=== PATIENT | male | born 1980 | race Caucasian/White ===

== ENCOUNTER 2021-02-05 18:16 | Inpatient (IN) | payer MEDICAID, SELFPAY ==
--- NOTE | ~2021-02-05 | CT_ITS ---
EXAMINATION: CT SHOULDER WITH CONTRAST, LEFT CLINICAL INFORMATION: Left shoulder pain. COMPARISON: None TECHNIQUE: Multiple axial images of the left shoulder were obtained without administration of intravenous contrast. Coronal and sagittal reformatted images were obtained. This CT examination was performed using dose optimization techniques as appropriate, variously including the following: *Automated exposure control *Adjustment of mA and/or kV according to patient size (this includes techniques or standardized protocols for targeted exams where dose is matched to indication/reason for exam; i.e. extremities or head) *Use of iterative reconstruction technique DLP: 280 mGy-cm FINDINGS: The glenohumeral and acromioclavicular joints are intact. There is no fracture or dislocation. The adjacent visualized upper left ribs are intact. Partial visualization of cervical thoracic scoliosis. The visualized cervical, mediastinal and left upper extremity soft tissues are unremarkable. There is no lymphadenopathy. CT/CT shoulder LT w con IMPRESSION: Unremarkable CT scan of the left shoulder.
--- NOTE | ~2021-02-05 | US_ITS ---
EXAMINATION: US VENOUS WITH DOPPLER UPPER EXTREMITY, LEFT CLINICAL INFORMATION: Left arm pain, swelling COMPARISON: None TECHNIQUE: Ultrasound of the upper extremity is performed using compression sonography and color and pulse Doppler flow with assessment of augmentation of flow. There is also imaging and Doppler assessment of the jugular and subclavian veins. Spectral analysis with color-flow imaging is performed. FINDINGS: Respiratory variation, normal compression, and augmented flow are noted throughout the upper extremity including the axillary, brachial, cubital, and radial and ulnar veins. There is normal flow in the internal jugular and subclavian veins. There is no visible deep or superficial thrombophlebitis. If the patient's symptoms progress, a followup ultrasound in 5 -7 days might be of value to exclude proximal propagation from a nonvisualized distal arm vein. US/US venous duplex UE LT IMPRESSION: No DVT demonstrated in the left upper extremity.
--- NOTE | ~2021-02-05 | CT_ITS ---
EXAMINATION: CT hand LT w con, CT forearm LT w con CLINICAL INFORMATION: Swelling, question tenosynovitis COMPARISON: X-rays earlier the same day TECHNIQUE: After administration of 85 cc Omnipaque 350 intravenous contrast, contiguous helical axial tomographic images through the left hand and forearm were obtained. FINDINGS: Image quality is suboptimal. There is motion artifact particularly of the forearm and wrist. Motion artifact limits evaluation of the ulna. No gross fracture or dislocation seen. There is limited soft tissue contrast. No gross fluid collection is seen. The liver, spleen, pancreas, bilateral adrenal glands, and left kidney are normal. The stomach and small bowel are nondilated. Small fat-containing umbilical hernia. CT/CT forearm LT w con IMPRESSION: Limited study. Motion artifact. Poor soft tissue contrast. No focal fluid collection. No displaced fracture. Consider MRI for further evaluation as clinically indicated particularly if the [id number] could be limited to one anatomic region, for example the hand, wrist, or forearm.
--- NOTE | ~2021-02-05 | CT_ITS ---
EXAMINATION: CT hand LT w con, CT forearm LT w con CLINICAL INFORMATION: Swelling, question tenosynovitis COMPARISON: X-rays earlier the same day TECHNIQUE: After administration of 85 cc Omnipaque 350 intravenous contrast, contiguous helical axial tomographic images through the left hand and forearm were obtained. FINDINGS: Image quality is suboptimal. There is motion artifact particularly of the forearm and wrist. Motion artifact limits evaluation of the ulna. No gross fracture or dislocation seen. There is limited soft tissue contrast. No gross fluid collection is seen. The liver, spleen, pancreas, bilateral adrenal glands, and left kidney are normal. The stomach and small bowel are nondilated. Small fat-containing umbilical hernia. CT/CT hand LT w con IMPRESSION: Limited study. Motion artifact. Poor soft tissue contrast. No focal fluid collection. No displaced fracture. Consider MRI for further evaluation as clinically indicated particularly if the [id number] could be limited to one anatomic region, for example the hand, wrist, or forearm.
--- NOTE | ~2021-02-05 | XR_ITS ---
EXAMINATION: XR HAND, LEFT CLINICAL INFORMATION: Finger pain in hand swelling. COMPARISON: No pertinent priors available. TECHNIQUE: PA, lateral, and oblique views of the left hand. FINDINGS: There is diffuse soft tissue swelling about the index finger. No radiopaque foreign body is visualized. The bones are normal in appearance. No evidence of fracture or focal osseous lesion. Alignment is anatomic. Joint spaces are maintained. No soft tissue calcifications. XR/XR hand LT 2V IMPRESSION: Diffuse soft tissue swelling about the index finger. No evidence of radiopaque foreign body. No underlying bony abnormality is demonstrated. The remainder of the hand is unremarkable.
[2021-02-05 18:21] VITALS: BP 144/82; PULSE 95; RESP 18; TEMP 36.8; O2SAT 99; BMI 25.8
--- NOTE | 2021-02-05 20:10 | ED.GENADULT ---
HPI - General Adult General Chief complaint: General Medical Stated complaint: ?Finger infection Time Seen by Provider: 02/05/21 21:30 Source: patient Mode of arrival: ambulatory Limitations: no limitations History of Present Illness HPI narrative: 40-year-old male presents with left index finger pain and swelling. States that he was treated with an antibiotic from an urgent care clinic and was advised to follow up within emergency department if pain or swelling increased. He states that he has 10/10 pain and now that the finger pain is radiating up to his arm into his shoulder. 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 He states to feel tired, but denies chest pain or pressure, palpitations, shortness of breath, abdominal pain, abdominal distention, dysuria, hematuria, nausea, vomiting, diarrhea, constipation, and weakness. Onset (ago): day(s) Location: upper extremity Severity: moderate Severity scale (1-10): 8 Quality: aching Pain Consistency: constant Relieving factors: none Exacerbating factors: movement Associated symptoms: denies other symptoms Treatments prior to arrival: other (Antibiotics) Related Data Home Medications Medication Instructions Recorded Confirmed naproxen 500 mg tablet 1 tab PO BID 02/05/21 02/05/21 sulfamethoxazole 800 1 tab PO Q12H 02/05/21 02/05/21 mg-trimethoprim 160 mg tablet Allergies Allergy/AdvReac Type Severity Reaction Status Date / Time No Known Allergies Allergy Verified 02/05/21 18:21 [No Known Allergies*] Review of Systems Review of Systems: Constitutional: No Fever, No Chills ENT/Mouth: No Ear Pain, No Hoarseness, No sore throat Eyes: No Eye Pain, No Swelling, No Redness, No Foreign Body Cardiovascular: No Chest Pain, No SOB Respiratory: No Cough, No Dyspnea Gastrointestinal: No Nausea, No Vomiting, No Diarrhea, No abdominal Pain Genitourinary: No Dysuria, No Hematuria Musculoskeletal: positive left index finger, hand and shoulder pain, No Myalgias, No Joint Swelling Skin: No Skin lacerations, No rash Neuro: No Weakness, No Numbness, No Paresthesias, No Loss of Consciousness, No Dizziness, No Headache Psych: No Anxiety/Panic, No Depression Heme/Lymph: no easy bruising, no Lymphadenopathy Endocrine: No Polyuria, No Polydipsia Yes all other systems are reviewed and are negative [facility]LY [facility] Past Medical History Attestation statement: The following information was validated with the patient. Source: old records reviewed Medical History (Updated 02/05/21 @ 21:30 by Marli Anne NP) No active medical problems Social History Social History Alcohol intake: current Alcohol intake frequency: a few times a month Use of substances other than those prescribed or required for medical reasons: Yes Substance Use Type: Crack/Cocaine, Heroin and Marijuana Advance Directives: No Advance Directives Information Provided: No Physical Exam Vital Signs: Vital Signs: Last Vital Signs Temp 99.8 F 02/06/21 00:41 Pulse 70 02/06/21 00:41 Resp 20 02/06/21 00:41 BP 130/84 02/06/21 00:41 Pulse Ox 99 02/06/21 00:41 Body Mass Index 25.8 Appearance: Alert. Oriented X3. No acute distress. Eyes: Pupils equal, round and reactive to light. ENT: Pharynx normal. Neck: Normal inspection. Neck supple. CVS: Normal heart rate and rhythm. Pulses normal. Respiratory: No respiratory distress. Breath sounds normal. Abdomen: Soft and nontender. Skin: Skin warm and dry. Normal skin color. Normal skin turgor. Extremities: Decreased range of motion to left shoulder, hand and elbow, swelling noted to the left index finger. Neuro: No motor deficit. No sensory deficit. Cranial nerves 2-12 intact. Course Course Course Narrative: 40-year-old male presents with increasing pain to left index finger which radiates up to his arm and shoulder. Has been taking Augmentin over the past week with poor effect. Will order x-rays, CBC, Chem 7 lactic and cultures. 9:26 p.m. lactic acid is 2.1, white count is 15.8 with presenting heart rate of 95. Patient does meet SIRS criteria at this time will resuscitate with 1 L of fluid, give ceftriaxone and vancomycin. Discussion with hospitalist, plan is to admit, would like to rule out tenosynovitis with CT scan of hand, forearm and shoulder. CT scans are negative for acute findings. Radiologist noted significant movement to the hand and forearm, request MRI. Consultations Consultation #1: Mazraeh Time: 22:00 Medical Decision Making Differential Diagnosis Differential Diagnosis: Cellulitis, osteomyelitis, foreign body, sepsis Medical Records Medical records reviewed: Yes I reviewed the patient's medical records. Lab Data Lab results reviewed: Yes I reviewed the patient's lab results. Result diagrams: 02/05/21 20:41 02/05/21 20:41 Labs: Lab Results 02/05/21 02/05/21 02/05/21 Range/Units 20:41 20:41 20:41 WBC 15.8 H (4.8-10.8) X10*3/uL RBC 4.08 L (4.60-5.80) X10*6/uL Hgb 11.6 L (14.0-18.0) g/dl Hct 36.4 L (42-52) % MCV 89.2 (80-98) fL MCH 28.4 (27.0-33.0) pg MCHC 31.9 (31.0-36.0) g/dl RDW 13.4 (11.0-16.0) % Plt Count 299 (160-400) X10*3/uL MPV 9.5 (9.4-12.4) fL Immature Gran % (Auto) 0.4 (0.0-0.4) % Neut % (Auto) 76.9 H (45-73) % Lymph % (Auto) 13.0 L (20-40) % [place] % (Auto) 8.9 (2-11) % Eos % (Auto) 0.7 (0-4) % Baso % (Auto) 0.1 (0-2) % Lymph # (Auto) 2.1 (1.2-4.9) X10*3/uL [place] # (Auto) 1.4 H (0.1-1.2) X10*3/uL Eos # (Auto) 0.1 (0.0-0.4) X10*3/uL Baso # (Auto) 0.0 (0.0-0.2) X10*3/uL Abs Immat Gran (auto) 0.07 H (0.00-0.03) X10*3/uL Absolute Neuts (auto) 12.1 H (2.0-8.3) X10*3/uL Absolute Nucleated RBC 0.000 (0.0-0.012) X10*3/uL Nucleated RBC % (auto) 0.0 (0.0-0.2) /100WBC ESR (0-15) MM/HR Sodium 136 (135-145) mmol/L Potassium 4.4 (3.3-5.1) mmol/L Chloride 99 (96-108) mmol/L Carbon Dioxide 26 (22-29) mmol/L Anion Gap 15 (12-20) BUN 14 (9-16) mg/dL Creatinine 0.80 (0.5-1.4) mg/dL Estim Creat Clear Calc 112.9 Estimated GFR > 60 Random Glucose 107 (60-115) mg/dL Lactic Acid 2.1 H* (0.5-2.0) mmol/L Lactic Acid Fup @ 2Hr (0.5-2.0) mmol/L Calcium 9.6 (8.4-10.2) mg/dL C-Reactive Protein 10.02 H (< or = 0.50) mg/dL COVID-19 ([facility]) (Negative) COVID-19 Clin Com 02/05/21 02/05/21 02/05/21 Range/Units 20:41 21:09 23:23 WBC (4.8-10.8) X10*3/uL RBC (4.60-5.80) X10*6/uL Hgb (14.0-18.0) g/dl Hct (42-52) % MCV (80-98) fL MCH (27.0-33.0) pg MCHC (31.0-36.0) g/dl RDW (11.0-16.0) % Plt Count (160-400) X10*3/uL MPV (9.4-12.4) fL Immature Gran % (Auto) (0.0-0.4) % Neut % (Auto) (45-73) % Lymph % (Auto) (20-40) % [place] % (Auto) (2-11) % Eos % (Auto) (0-4) % Baso % (Auto) (0-2) % Lymph # (Auto) (1.2-4.9) X10*3/uL [place] # (Auto) (0.1-1.2) X10*3/uL Eos # (Auto) (0.0-0.4) X10*3/uL Baso # (Auto) (0.0-0.2) X10*3/uL Abs Immat Gran (auto) (0.00-0.03) X10*3/uL Absolute Neuts (auto) (2.0-8.3) X10*3/uL Absolute Nucleated RBC (0.0-0.012) X10*3/uL Nucleated RBC % (auto) (0.0-0.2) /100WBC ESR 48 H (0-15) MM/HR Sodium (135-145) mmol/L Potassium (3.3-5.1) mmol/L Chloride (96-108) mmol/L Carbon Dioxide (22-29) mmol/L Anion Gap (12-20) BUN (9-16) mg/dL Creatinine (0.5-1.4) mg/dL Estim Creat Clear Calc Estimated GFR Random Glucose (60-115) mg/dL Lactic Acid (0.5-2.0) mmol/L Lactic Acid Fup @ 2Hr 0.7 (0.5-2.0) mmol/L Calcium (8.4-10.2) mg/dL C-Reactive Protein (< or = 0.50) mg/dL COVID-19 ([facility]) Negative (Negative) COVID-19 Clin Com See Note Imaging Data Hand x-ray: Attestation: I personally reviewed and interpreted this imaging study as follows: Radiologist's impression: EXAMINATION: XR HAND, LEFT CLINICAL INFORMATION: Finger pain in hand swelling.? COMPARISON: No pertinent priors available.? TECHNIQUE: PA, lateral, and oblique views of the left hand. FINDINGS: There is diffuse soft tissue swelling about the index finger. No radiopaque foreign body is visualized. The bones are normal in appearance. No evidence of fracture or focal osseous lesion. Alignment is anatomic. Joint spaces are maintained. No soft tissue calcifications.? XR/XR hand LT 2V IMPRESSION: Diffuse soft tissue swelling about the index finger. No evidence of radiopaque foreign body. No underlying bony abnormality is demonstrated. The remainder of the hand is unremarkable. CT scan hand, forearm and shoulder: Attestation: I personally reviewed and interpreted this imaging study as follows: Radiologist's impression: CLINICAL INFORMATION: Swelling, question tenosynovitis COMPARISON: X-rays earlier the same day TECHNIQUE: After administration of 85 cc Omnipaque 350 intravenous contrast, contiguous helical axial tomographic images through the left hand and forearm were obtained. FINDINGS: Image quality is suboptimal. There is motion artifact particularly of the forearm and wrist. Motion artifact limits evaluation of the ulna. No gross fracture or dislocation seen. There is limited soft tissue contrast. No gross fluid collection is seen. The liver, spleen, pancreas, bilateral adrenal glands, and left kidney are normal. The stomach and small bowel are nondilated. Small fat-containing umbilical hernia. CT/CT hand LT w con IMPRESSION: Limited study. Motion artifact. Poor soft tissue contrast. ? No focal fluid collection. No displaced fracture. ? Consider MRI for further evaluation as clinically indicated particularly if the [id number] could be limited to one anatomic region, for example the hand, wrist, or forearm. FINDINGS: The glenohumeral and acromioclavicular joints are intact. There is no fracture or dislocation. The adjacent visualized upper left ribs are intact. Partial visualization of cervical thoracic scoliosis. The visualized cervical, mediastinal and left upper extremity soft tissues are unremarkable. There is no lymphadenopathy. CT/CT shoulder LT w con IMPRESSION: Unremarkable CT scan of the left shoulder.?? Critical Care Time Critical Care Time Critical Care Time: Yes Total Critical Care Time: 65 Attestation: I have personally provided critical care time exclusive of time spent on separately billable procedures. Time includes review of laboratory data, radiology results, discussion with consultants, and monitoring for potential decompensation. Interventions were performed as documented. Discharge Plan Discharge Clinical Impression: Cellulitis Qualifiers: Site of cellulitis: extremity Site of cellulitis of extremity: finger Laterality: left Qualified Code(s): L03.012 - Cellulitis of left finger Patient Disposition: Admitted As Inpatient
[2021-02-05] MEDS: Ketorolac Tromethamine 15 MG/ML VIAL 30 MG IVPUSH (20:42)
[2021-02-05 20:46] LABS: MANUAL DIFF FLAG NO
[2021-02-05 20:47] LABS: Basophils Percent Auto 0.1 % (0-2); Eosinophils Absolute Auto 0.1 X10*3/uL (0.0-0.4); Eosinophils Percent Auto 0.7 % (0-4); Hematocrit 36.4 % (42-52); Hemoglobin 11.6 g/dl (14.0-18.0); Imm Gran Abs Auto 0.07 X10*3/uL (0.00-0.03); Imm Gran Pct Auto 0.4 % (0.0-0.4); Lymphocytes Absolute Auto 2.1 X10*3/uL (1.2-4.9); Mean Corpuscular HGB Conc 31.9 g/dl (31.0-36.0); Mean Corpuscular Hemoglobin 28.4 pg (27.0-33.0); Mean Corpuscular Volume 89.2 fL (80-98); Mean Platelet Volume 9.5 fL (9.4-12.4); Monocytes Absolute Auto 1.4 X10*3/uL (0.1-1.2); Monocytes Percent Auto 8.9 % (2-11); Neutrophils Absolute Auto 12.1 X10*3/uL (2.0-8.3); Neutrophils Percent Auto 76.9 % (45-73); Platelet Count 299 X10*3/uL (160-400); Red Blood Count 4.08 X10*6/uL (4.60-5.80); Red Cell Distribution Width 13.4 % (11.0-16.0); White Blood Count 15.8 X10*3/uL (4.8-10.8)
[2021-02-05 21:05] VITALS: BP 130/87; PULSE 78; RESP 19; TEMP 37.8; O2SAT 97
[2021-02-05 21:18] LABS: Anion Gap 15 (12-20); Blood Urea Nitrogen 14 mg/dL (9-16); Calcium 9.6 mg/dL (8.4-10.2); Carbon Dioxide 26 mmol/L (22-29); Chloride 99 mmol/L (96-108); Creatinine Clr Calc Pharmacy 112.9; Estimated Glomerular Filt Rate > 60; Glucose Random 107 mg/dL (60-115); Potassium 4.4 mmol/L (3.3-5.1); Sodium 136 mmol/L (135-145)
[2021-02-05 21:21] LABS: Lactic Acid 2.1 mmol/L (0.5-2.0)
[2021-02-05] MEDS: cefTRIAXone sodium 1 GM in 0.9 % Sodium Chloride 50 ML IV (21:28)
[2021-02-05] MEDS: 0.9 % Sodium Chloride 1,000 ML 999 ML IVCONT ×2 (21:28→22:35)
[2021-02-05 21:46] LABS: COVID-19 Test Negative (Negative)
[2021-02-05 22:20] VITALS: BP 156/88; PULSE 76; RESP 19; TEMP 37.7; O2SAT 99
[2021-02-05] MEDS: vancomycin HCL 1,000 MG in 0.9 % Sodium Chloride 250 ML 270 MG IV (22:35)
[2021-02-05 22:45] LABS: Reflex Lactate? Lactic Acid Added
[2021-02-05] MEDS: iohexoL 350 MG/ML 100 ML INFUS..BTL IV (22:51)
[2021-02-05 23:42] LABS: ~Lactic Acid-LAB USE ONLY 0.7 mmol/L (0.5-2.0)
[2021-02-05] MEDS: iohexoL 350 MG/ML 100 ML INFUS..BTL 85 ML IV (23:42)
[2021-02-06] VITALS (14 sets, daily range): BP systolic 114–162; BP diastolic 59–90; PULSE 59–90; RESP 12–20; TEMP 36.1–37.8; O2SAT 97–100
--- NOTE | 2021-02-06 | ECG_ITS ---
Test Reason : QTC CHECK Blood Pressure : / mmHG Vent. Rate : 061 BPM Atrial Rate : 061 BPM P-R Int : 128 ms QRS Dur : 098 ms QT Int : 436 ms P-R-T Axes : 045 014 024 degrees QTc Int : 438 ms Normal sinus rhythm Normal ECG No previous ECGs available Referred By: Kendrick Torres Electronically Signed By:PAOLA LOAIZA
--- NOTE | 2021-02-06 00:05 | PC.NURSE ---
00:00 VS entered in error, wrong patient
--- NOTE | 2021-02-06 00:21 | PC.NURSE ---
Marli FIELD SCOUT aware of temp. Per Marli, pt receive tylenol v/o
[2021-02-06] MEDS: Acetaminophen 325 MG TABLET PO (00:27)
[2021-02-06] MEDS: Acetaminophen 325 MG TABLET 650 MG PO ×2 (00:28→08:22)
[2021-02-06 01:06] LABS: C Reactive Protein 10.02 mg/dL (< or = 0.50)
[2021-02-06 01:20] LABS: Erythrocyte Sedimentation Rate 48 MM/HR (0-15)
[2021-02-06] MEDS: Enoxaparin Sodium 40 MG/0.4 ML SYRINGE SUBCUT (02:41)
[2021-02-06] MEDS: Piperacillin Sodium/Tazobactam 3.375 GM in 0.9 % Sodium Chloride 50 ML IV ×4 (02:41→21:37)
[2021-02-06] MEDS: HYDROmorphone HCl 0.5 MG/0.5 ML SYRINGE IVPUSH ×4 (02:56→21:33)
--- NOTE | 2021-02-06 06:48 | PM.IMHP ---
History of Present Illness Date of Service: 02/05/21 Chief Complaint: Left shoulder arm and hand pain 40-year-old with past medical history of IV drug use presents to the hospital with complaints of pains under as upper left extremity that started few days ago initially in his shoulder, then travel to his arm as well as now has significant pain in his index finger of the left hand. Patient has limited range of motion due to the pain, describes the pain as 10/10, radiating from the shoulder down the arm, denies any numbness or tingling, denies any trauma or injury. Reports injecting in that arm, denies any shortness of breath, no chest pain, no abdominal pain nausea or vomiting, no diarrhea constipation, no urinary symptoms and no lower extremity edema. On arrival to the ED vitals are significant for a temp of a 100.8?, heart rate of 70, respiratory rate of 18, blood pressure 139/80 and satting 100% on room air Are significant for WBC count of 15.8, hemoglobin of 11.6, left shift, ESR 48, lactic acid of 2.1, CRP of 10.02, hand x-ray showing diffuse soft tissue swelling of the index finger with no evidence of foreign body, CT of the for arm poor soft tissue contrast Head CT is limited by artifact And shoulder CT shows unremarkable scan Patient will be admitted for further management Review of Systems Review of Systems: Yes all other systems are reviewed and are negative [facility] Medical History (Updated 02/06/21 @ 07:03 by Yudy Morin MD) IV drug abuse No active medical problems Social History Alcohol intake: current Alcohol intake frequency: a few times a month Use of substances other than those prescribed or required for medical reasons: Yes Substance Use Type: Crack/Cocaine, Heroin and Marijuana Advance Directives: No Advance Directives Information Provided: No Meds Allergies Allergy/AdvReac Type Severity Reaction Status Date / Time No Known Allergies Allergy Verified 02/05/21 18:21 [No Known Allergies*] Active Medications: Current Medications Generic Name Dose Route Start Last Admin Trade Name Freq PRN Reason Stop Dose Admin Acetaminophen 650 mg 02/06/21 01:18 Acetaminophen 325 Mg Tablet PO Q6H PRN Pain, Mild (Pain Scale 1-3) Enoxaparin Sodium 40 mg 02/06/21 02:00 02/06/21 02:41 Enoxaparin Sodium 40 Mg/0.4 Ml Syringe SUBCUT 40 mg Q24H LISA Administration Hydromorphone HCl 0.5 mg 02/06/21 01:18 02/06/21 02:56 Hydromorphone Hcl 0.5 Mg/0.5 Ml Syringe IVPUSH 0.5 mg Q4H PRN Administration Pain, Severe (Pain Scale 7-10) Protocol Piperacillin Sod/Tazobactam 50 mls @ 100 mls/hr 02/06/21 02:00 02/06/21 03:19 Sod 3.375 gm/ Sodium Chloride IV Infused Q6H LISA Infusion Vancomycin HCl 1,250 mg/ 250 mls @ 166.667 mls/hr 02/06/21 10:00 Sodium Chloride IV Q12H LISA Ondansetron HCl 4 mg 02/06/21 01:18 Ondansetron Hcl 4 Mg/2 Ml Vial IVPUSH Q8H PRN Nausea and Vomiting Pharmacy Consult 1 each 02/06/21 01:18 Consult Rx Vancomycin Dosing MISCELLANE DAILY PRN Consult order Sodium Chloride 3 ml 02/06/21 08:00 0.9 % Sodium Chloride Flush 3 Ml Syringe IVFLUSH QSHIFT [facility] Home Medications Medication Instructions Recorded Confirmed Last Taken Type naproxen 500 mg tablet 1 tab PO BID 02/05/21 02/05/21 02/05/21 History sulfamethoxazole 800 1 tab PO Q12H 02/05/21 02/05/21 02/05/21 History mg-trimethoprim 160 mg tablet Physical Exam Vital Signs and Narrative: Vital Signs: Last Vital Signs Temp 100.0 F 02/06/21 02:43 Pulse 60 02/06/21 05:28 Resp 19 02/06/21 05:28 BP 127/77 02/06/21 05:28 Pulse Ox 98 02/06/21 05:28 Body Mass Index 25.8 Const: General: cooperative and no acute distress Orientation/consciousness: patient oriented x3 Eyes: General: appearance normal, both eyes and all related structures Pupils: Equal, round and reactive pupils present Resp: Effort & Inspection: normal respiratory effort and able to speak in complete sentences Auscultation: clear to auscultation bilaterally Cardio: Rate: regular rate Rhythm: regular rhythm GI: Palpation (GI): Soft to palpation Auscultation: normal bowel sounds Skin: General skin exam: no rashes or lesions noted Neuro: General: patient oriented x3 Cranial nerves: Yes Equal, round and reactive pupils present Cognition (Neuro): normal cognition Extrem: Other: Patient has significant limited range of motion of his left index finger as well as left shoulder, has significant pain on palpation of shoulder as well as hand, no erythema, tenderness, no evidence of trauma or injury some swelling of his left index finger present General: Yes normal to inspection and Yes no pedal edema Results Labs CBC and Chem 7: 02/05/21 20:41 02/05/21 20:41 Labs: Laboratory Results - last 24 hr 02/05/21 02/05/21 02/05/21 20:41 20:41 20:41 MCV 89.2 MCH 28.4 MCHC 31.9 RDW 13.4 Plt Count 299 MPV 9.5 Immature Gran % (Auto) 0.4 Neut % (Auto) 76.9 H Lymph % (Auto) 13.0 L [place] % (Auto) 8.9 Eos % (Auto) 0.7 Baso % (Auto) 0.1 Lymph # (Auto) 2.1 [place] # (Auto) 1.4 H Eos # (Auto) 0.1 Baso # (Auto) 0.0 Abs Immat Gran (auto) 0.07 H Absolute Neuts (auto) 12.1 H Absolute Nucleated RBC 0.000 Nucleated RBC % (auto) 0.0 ESR Anion Gap 15 Estim Creat Clear Calc 112.9 Estimated GFR > 60 Random Glucose 107 Lactic Acid 2.1 H* Lactic Acid Fup @ 2Hr Calcium 9.6 C-Reactive Protein 10.02 H COVID-19 ([facility]) COVID-19 Clin Com 02/05/21 02/05/21 02/05/21 20:41 21:09 23:23 MCV MCH MCHC RDW Plt Count MPV Immature Gran % (Auto) Neut % (Auto) Lymph % (Auto) [place] % (Auto) Eos % (Auto) Baso % (Auto) Lymph # (Auto) [place] # (Auto) Eos # (Auto) Baso # (Auto) Abs Immat Gran (auto) Absolute Neuts (auto) Absolute Nucleated RBC Nucleated RBC % (auto) ESR 48 H Anion Gap Estim Creat Clear Calc Estimated GFR Random Glucose Lactic Acid Lactic Acid Fup @ 2Hr 0.7 Calcium C-Reactive Protein COVID-19 ([facility]) Negative COVID-19 Clin Com See Note Imaging Radiologist's Impressions: Impressions Hand X-Ray 02/05/21 20:15 IMPRESSION: Diffuse soft tissue swelling about the index finger. No evidence of radiopaque foreign body. No underlying bony abnormality is demonstrated. The remainder of the hand is unremarkable. Forearm CT 02/05/21 21:27 IMPRESSION: Limited study. Motion artifact. Poor soft tissue contrast. No focal fluid collection. No displaced fracture. Consider MRI for further evaluation as clinically indicated particularly if the [id number] could be limited to one anatomic region, for example the hand, wrist, or forearm. Hand CT 02/05/21 21:27 IMPRESSION: Limited study. Motion artifact. Poor soft tissue contrast. No focal fluid collection. No displaced fracture. Consider MRI for further evaluation as clinically indicated particularly if the [id number] could be limited to one anatomic region, for example the hand, wrist, or forearm. Shoulder CT 02/05/21 22:20 IMPRESSION: Unremarkable CT scan of the left shoulder. Assessment and Plan (1) Sepsis: Status: Acute (2) Lactic acidosis: Status: Acute (3) Elevated erythrocyte sedimentation rate: Status: Acute (4) Shoulder pain, left: Status: Acute 40-year-old male with past medical history of IV drug use presents to the hospital with complaints of left shoulder and left index finger pain found to have sepsis # sepsis - most likely secondary to left upper extremity although unclear exactly what is the underlying cause - there is no erythema, no warmth, there is edema of the left index finger as well as tenderness - x-ray showed edema around the left index finger, CT imaging limited - will obtain MRI of the left shoulder as well as left hand - broad-spectrum antibiotics in the setting of leukocytosis, lactic acidosis as well as his history of IV drug use - follow cultures # lactic acidosis - resolved after IV fluids - possibly secondary to above # elevated ESR and CRP - unclear etiology at this time - MRI as above # IV drug abuse - injects in his left arm - broad-spectrum antibiotic - monitor withdrawal symptoms DVT prophylaxis Lovenox Quality Stroke Does the patient have a stroke diagnosis?: No VTE Prior VTE?: No VTE Risk Level:: Medical - moderate - high VTE Device Contraindication: Treatment Not Indicated VTE Drug Contraindication: N/A - Med Ordered
[2021-02-06 07:12] LABS: MANUAL DIFF FLAG NO
--- NOTE | 2021-02-06 07:25 | PC.NURSE ---
nurse to nurse given to guillermina Bradleyrn).
[2021-02-06 07:31] LABS: Basophils Percent Auto 0.1 % (0-2); Eosinophils Absolute Auto 0.2 X10*3/uL (0.0-0.4); Eosinophils Percent Auto 1.2 % (0-4); Hematocrit 35.5 % (42-52); Hemoglobin 11.5 g/dl (14.0-18.0); Imm Gran Abs Auto 0.07 X10*3/uL (0.00-0.03); Imm Gran Pct Auto 0.5 % (0.0-0.4); Lymphocytes Absolute Auto 2.1 X10*3/uL (1.2-4.9); Mean Corpuscular HGB Conc 32.4 g/dl (31.0-36.0); Mean Corpuscular Hemoglobin 28.4 pg (27.0-33.0); Mean Corpuscular Volume 87.7 fL (80-98); Mean Platelet Volume 9.7 fL (9.4-12.4); Monocytes Absolute Auto 1.3 X10*3/uL (0.1-1.2); Monocytes Percent Auto 9.8 % (2-11); Neutrophils Absolute Auto 10.1 X10*3/uL (2.0-8.3); Neutrophils Percent Auto 73.4 % (45-73); Platelet Count 289 X10*3/uL (160-400); Red Blood Count 4.05 X10*6/uL (4.60-5.80); Red Cell Distribution Width 13.4 % (11.0-16.0); White Blood Count 13.7 X10*3/uL (4.8-10.8)
[2021-02-06 07:46] LABS: Anion Gap 13 (12-20); Blood Urea Nitrogen 8 mg/dL (9-16); Calcium 9.2 mg/dL (8.4-10.2); Carbon Dioxide 23 mmol/L (22-29); Chloride 103 mmol/L (96-108); Creatinine Clr Calc Pharmacy 127.3; Estimated Glomerular Filt Rate > 60; Glucose Random 101 mg/dL (60-115); Potassium 4.2 mmol/L (3.3-5.1); Sodium 135 mmol/L (135-145)
[2021-02-06] MEDS: 0.9 % Sodium Chloride Flush 3 ML SYRINGE IVFLUSH ×3 (08:23→21:39)
[2021-02-06] MEDS: vancomycin HCL 1,000 MG in 0.9 % Sodium Chloride 250 ML 270 MG IV ×2 (09:05→21:36)
[2021-02-06] MEDS: methADONE HCl 20 MG/2 ML ORAL.CONC 35 MG PO (10:31)
--- NOTE | 2021-02-06 11:36 | PM.EVENT ---
Event Note Date of Service: 02/06/21 Event Note: Day Team Note in brief S seen and examined this AM reports L shoulder pain and limited ROM due to pain denies fevers or chills denies infection in the LUE -- at any site O vitals -- last documneted, Tmax 100 Gen - appears to be in pain with movement of L shoulder CVS - S1S2 Lungs - clear Abd - soft n Ext - LUE limited active ROM at shoulder joint, passive ROM appears in tact; mild swelling at the shoulder joint without any erythema noted; L index finger limtted ROM, but able to make fist; L index finger edematous without redness; single isolated pinpoint redness, ? injection site 40 yo M with active IVDU who presented to [facility] on 02/05/21 for L finger/L shoulder pain and swelling. There is concern over infection as he has had a low grade temp. CT shoulder without acute findings, but the remainder of his imaging studies are limited due to motion artifact. 1. L index finger + L shoulder swelling and pain question related to his IV substance abuse he did have a low grade temp of 100 and a presenting wbc count of 15.8 continue broad spec antibiotics -- vancomcyin + zosyn will get orthopedic consultation and hold off on further imaging until seen by them monitor renal function while on vancomcyin + zosyn; f/u vancocmyin trough 2. Chronic opiate dependence continue methadone check QTC remainder of care per H&P Full Code DVT pptx, Lovenox
--- NOTE | 2021-02-06 11:55 | PC.NURSE ---
Skin/wound assessment completed today. Patient has a small healed puncture wound to left index finger. Pain and limited ROM in left arm. Patient on antibiotics. No other skin issues noted at this time.
--- NOTE | 2021-02-06 12:24 | MHC.CM.PN ---
CM MET WITH PT WHO REPORTS HE LIVES WITH HIS BROTHER AND IS INDEPENDENT WITH ALL CARE. PT DENIES USE OF DME OR COMMUNITY OR HOME SERVICES. PT DOES NOT HAVE A HCP AND WAS NOT INTERESTED IN COMPLETING ONE TODAY. PT REPORTS HE HAS A PCP [facility]. CURRENT DC PLAN IS HOME WITH NO SERVICES PT REPORTS HIS BROTHER MAY BE AVAILABLE TO DRIVE HIM IF NOT WORKING, OTHERWISE HE WILL NEED TO USE [facility]
--- NOTE | 2021-02-06 12:39 | P.CONOP_ITS ---
History of Present Illness HPI Consult date: 02/06/21 Chief complaint: Abscess in ivdu Narrative: Mr. Hansen is a 40 yo male who presented to the ED for evaluation of left index finger swelling and left shoulder pain for the past few days. The patient admits to using IV heroine and injecting into the left side of his neck and right upper extremity. He reports that he may have injured his shoulder a few days ago while at work lifting heavy boxes. The patient was admitted to the medicine service and begun IV vanco and zosyn yesterday evening. Orthopedics was consulted today for further evaluation. [facility] Past Medical History Medical History (Updated 02/06/21 @ 07:03 by Yudy Morin MD) IV drug abuse No active medical problems Social History Social History Household Members: Family Housing: Apartment Do you presently have visiting nurse or other home services: No Alcohol intake: current Alcohol intake frequency: a few times a month Patient Tobacco Use Status: Current everyday Tobacco user Tobacco use type: Cigarette Cigarette Packs Per Day: 0.5 Cigarettes Per Day: 10.0 Years Smoked: 10 Smoked in Last 30 Days: Yes Patient Interested in Nicotine Replacement: No Patient Given Instructions on How to Stop Smoking: Yes Date Education Initiated: 02/06/21 Use of substances other than those prescribed or required for medical reasons: Yes Substance Use Type: Crack/Cocaine, Marijuana and Opiates Substance Use Frequency: Chronic Longstanding Last Used Substance: Days (ago) Currently Displaying Signs/Symptoms of Drug Intoxication Withdrawal: No Any prior treatment program specific to substance use: Yes Have you been hit, kicked, punched, or otherwise hurt by someone within the past year? If so, by whom?: No Do you feel safe in your current relationship?: No Current Relationship Is there a partner from a previous relationship who is making you feel unsafe now?: No Are you made to feel afraid or neglected: No Advance Directives: No Advance Directives Information Provided: No Do you have thoughts of harming others: None Do you have a plan to hurt others: No Plan Recently lost weight without trying: No Eating poorly because of decreased appetite: No Nutrition Risks: No Nutritional Risk Poor oral hygiene: No service: No Current occupational status: employed Meds Allergies Allergy/AdvReac Type Severity Reaction Status Date / Time No Known Allergies Allergy Verified 02/05/21 18:21 [No Known Allergies*] Active Medications: Current Medications Generic Name Dose Route Start Last Admin Trade Name Freq PRN Reason Stop Dose Admin Acetaminophen 650 mg 02/06/21 01:18 02/06/21 08:22 Acetaminophen 325 Mg Tablet PO 650 mg Q6H PRN Administration Pain, Mild (Pain Scale 1-3) Enoxaparin Sodium 40 mg 02/06/21 02:00 02/06/21 02:41 Enoxaparin Sodium 40 Mg/0.4 Ml Syringe SUBCUT 40 mg Q24H LISA Administration Hydromorphone HCl 0.5 mg 02/06/21 01:18 02/06/21 07:35 Hydromorphone Hcl 0.5 Mg/0.5 Ml Syringe IVPUSH 0.5 mg Q4H PRN Administration Pain, Severe (Pain Scale 7-10) Protocol Piperacillin Sod/Tazobactam 50 mls @ 100 mls/hr 02/06/21 02:00 02/06/21 09:08 Sod 3.375 gm/ Sodium Chloride IV Infused Q6H LISA Infusion Vancomycin HCl 1,000 mg/ 270 mls @ 270 mls/hr 02/06/21 08:00 02/06/21 10:33 Sodium Chloride IV Infused Q12H LISA Infusion Methadone HCl 35 mg 02/06/21 10:00 02/06/21 10:31 Methadone Hcl 20 Mg/2 Ml Oral.Conc PO 35 mg DAILY LISA Administration Ondansetron HCl 4 mg 02/06/21 01:18 Ondansetron Hcl 4 Mg/2 Ml Vial IVPUSH Q8H PRN Nausea and Vomiting Pharmacy Consult 1 each 02/06/21 01:18 Consult Rx Vancomycin Dosing MISCELLANE DAILY PRN Consult order Sodium Chloride 3 ml 02/06/21 08:00 02/06/21 08:23 0.9 % Sodium Chloride Flush 3 Ml Syringe IVFLUSH 3 ml QSHIFT LISA Administration Home Medications Medication Instructions Recorded Confirmed Last Taken Type naproxen 500 mg tablet 1 tab PO BID 02/05/21 02/05/21 02/05/21 History sulfamethoxazole 800 1 tab PO Q12H 02/05/21 02/05/21 02/05/21 History mg-trimethoprim 160 mg tablet methadone 10 mg/5 mL oral solution 35 mg PO DAILY 02/06/21 02/06/21 Unknown History Physical Exam Vital Signs: Vital Signs: Last Vital Signs Temp 97.8 F 02/06/21 12:00 Pulse 59 02/06/21 12:00 Resp 17 02/06/21 12:00 BP 133/76 02/06/21 12:00 Pulse Ox 100 02/06/21 12:00 Body Mass Index 25.8 Const: General: cooperative, healthy appearing and no acute distress Resp: Effort & Inspection: normal respiratory effort and able to speak in complete sentences Cardio: Rate: regular rate Peripheral pulses: Peripheral pulses 2+ throughout GI: Palpation (GI): Soft to palpation Skin: Lesions: no lesions Rashes: no rashes Extrem: Other: Left shoulder: No ecchymosis, redness, or edema. Extreme tenderness to light touch of the lateral shoulder. Exam is limited due to pain. Unable to demonstrate any shoulder ROM. radial pulse intact. Sensation intact. Left index finger: Mild edema and tenderness to moderate palpation of the flexor tendon. No echymosis, or erythema. Patient is able to fully extend and is lacking about 3cm from a closed fist. Capillary refill is brisk. Results Labs Result Diagrams: 02/06/21 07:00 02/06/21 07:00 Labs: Abnormal lab results 02/05/21 02/05/21 02/05/21 Range/Units 20:41 20:41 20:41 WBC 15.8 H (4.8-10.8) X10*3/uL RBC 4.08 L (4.60-5.80) X10*6/uL Hgb 11.6 L (14.0-18.0) g/dl Hct 36.4 L (42-52) % Immature Gran % (Auto) (0.0-0.4) % Neut % (Auto) 76.9 H (45-73) % Lymph % (Auto) 13.0 L (20-40) % [place] # (Auto) 1.4 H (0.1-1.2) X10*3/uL Abs Immat Gran (auto) 0.07 H (0.00-0.03) X10*3/uL Absolute Neuts (auto) 12.1 H (2.0-8.3) X10*3/uL ESR (0-15) MM/HR BUN (9-16) mg/dL Lactic Acid 2.1 H* (0.5-2.0) mmol/L C-Reactive Protein 10.02 H (< or = 0.50) mg/dL 02/05/21 02/06/21 02/06/21 Range/Units 20:41 07:00 07:00 WBC 13.7 H (4.8-10.8) X10*3/uL RBC 4.05 L (4.60-5.80) X10*6/uL Hgb 11.5 L (14.0-18.0) g/dl Hct 35.5 L (42-52) % Immature Gran % (Auto) 0.5 H (0.0-0.4) % Neut % (Auto) 73.4 H (45-73) % Lymph % (Auto) 15.0 L (20-40) % [place] # (Auto) 1.3 H (0.1-1.2) X10*3/uL Abs Immat Gran (auto) 0.07 H (0.00-0.03) X10*3/uL Absolute Neuts (auto) 10.1 H (2.0-8.3) X10*3/uL ESR 48 H (0-15) MM/HR BUN 8 L (9-16) mg/dL Lactic Acid (0.5-2.0) mmol/L C-Reactive Protein (< or = 0.50) mg/dL H & H 02/05/21 02/06/21 Range/Units 20:41 07:00 Hgb 11.6 L 11.5 L (14.0-18.0) g/dl Hct 36.4 L 35.5 L (42-52) % All other labs normal. Assessment and Plan (1) Shoulder pain, left: Status: Acute Mr. Hansen is a 40 yo male who presents to the hospital for left shoulder and left index finger pain. He has a PMH significant for IVDA last injecting h eroine last evening. He admits to injecting into the lateral aspect of the left side of his neck. A CT scan of the shoulder, forearm, and hand are negative for infection. X-ray of the hand demonstrates soft tissue swelling of the left index finger. There are no signs of tenosynovitis in the hand and no evidence of injection in the left shoulder joint. No further orthopedic intervention needed at this time. (2) IV drug abuse: Status: Acute Procedures Date of Service Date of Service: 02/06/21
[2021-02-07] MEDS: Enoxaparin Sodium 40 MG/0.4 ML SYRINGE SUBCUT (03:21)
[2021-02-07] MEDS: Piperacillin Sodium/Tazobactam 3.375 GM in 0.9 % Sodium Chloride 50 ML IV ×4 (03:21→20:18)
[2021-02-07 04:00] VITALS: RESP 16
[2021-02-07] MEDS: HYDROmorphone HCl 0.5 MG/0.5 ML SYRINGE IVPUSH ×4 (04:00→20:17)
[2021-02-07 07:14] VITALS: BP 113/64; PULSE 67; RESP 18; TEMP 36.4; O2SAT 99
[2021-02-07 07:14] LABS: Hemoglobin 12.2 g/dl (14.0-18.0); Mean Corpuscular Hemoglobin 28.8 pg (27.0-33.0); Mean Corpuscular Volume 87.3 fL (80-98); Mean Platelet Volume 9.2 fL (9.4-12.4); Platelet Count 342 X10*3/uL (160-400); Red Blood Count 4.24 X10*6/uL (4.60-5.80); Red Cell Distribution Width 13.3 % (11.0-16.0)
[2021-02-07 07:28] LABS: Anion Gap 15 (12-20); Blood Urea Nitrogen 9 mg/dL (9-16); Calcium 10.3 mg/dL (8.4-10.2); Carbon Dioxide 29 mmol/L (22-29); Chloride 100 mmol/L (96-108); Creatinine Clr Calc Pharmacy 122.1; Estimated Glomerular Filt Rate > 60; Glucose Random 110 mg/dL (60-115); Potassium 4.9 mmol/L (3.3-5.1); Sodium 139 mmol/L (135-145)
[2021-02-07 07:40] LABS: Vancomycin Trough 3.7 mcg/mL (10.0-20.0)
[2021-02-07] MEDS: methADONE HCl 20 MG/2 ML ORAL.CONC 35 MG PO (07:47)
[2021-02-07] MEDS: 0.9 % Sodium Chloride Flush 3 ML SYRINGE IVFLUSH ×3 (07:48→20:18)
[2021-02-07] MEDS: vancomycin HCL 1,000 MG in 0.9 % Sodium Chloride 250 ML 270 MG IV ×3 (08:36→23:54)
--- NOTE | 2021-02-07 09:57 | MHC.CM.PN ---
CM MET W/HOSPITALIST WHO REPORTS DUE TO PT'S COMPLICATED CASE AND 3 PREVIOUS VASCULAR SURGERIES THIS YEAR PT WILL BE TXFRD TO [facility] ONCE BED AVAILABLE. CM WILL CONT TO FOLLOW.
[2021-02-07 11:16] VITALS: BP 125/73; PULSE 69; RESP 16; TEMP 36.1; O2SAT 98
--- NOTE | 2021-02-07 11:40 | HO.PM.IMPN ---
Subjective Subjective Date of Service: 02/07/21 Interval History: severe left shoulder pain, tightness, decreased ROM, sensation intact Cardiovascular Cardiovascular: Reports no additional cardiovascular complaints Respiratory Respiratory: Reports no additional respiratory complaints Physical Exam Vital Signs: Vital Signs: Last Vital Signs Temp 96.9 F 02/07/21 11:16 Pulse 69 02/07/21 11:16 Resp 16 02/07/21 11:16 BP 125/73 02/07/21 11:16 Pulse Ox 98 02/07/21 11:16 Body Mass Index 25.8 General: AO X 3, no acute distress Resp: CTA bilateral CVS: S1,S2,RRR GI: soft, non tender, non distended Neuro: motor grossly intact Psych: appropriate affect LUE swelling, tenderness Objective Data Current Medications Generic Name Dose Route Start Last Admin Trade Name Freq PRN Reason Stop Dose Admin Acetaminophen 650 mg 02/06/21 01:18 02/06/21 08:22 Acetaminophen 325 Mg Tablet PO 650 mg Q6H PRN Administration Pain, Mild (Pain Scale 1-3) Enoxaparin Sodium 40 mg 02/06/21 02:00 02/07/21 03:21 Enoxaparin Sodium 40 Mg/0.4 Ml Syringe SUBCUT 40 mg Q24H LISA Administration Hydromorphone HCl 0.5 mg 02/06/21 01:18 02/07/21 09:37 Hydromorphone Hcl 0.5 Mg/0.5 Ml Syringe IVPUSH 0.5 mg Q4H PRN Administration Pain, Severe (Pain Scale 7-10) Protocol Piperacillin Sod/Tazobactam 50 mls @ 100 mls/hr 02/06/21 02:00 02/07/21 08:38 Sod 3.375 gm/ Sodium Chloride IV Infused Q6H LISA Infusion Vancomycin HCl 1,000 mg/ 270 mls @ 270 mls/hr 02/07/21 08:00 02/07/21 09:37 Sodium Chloride IV Infused Q8H LISA Infusion Methadone HCl 35 mg 02/06/21 10:00 02/07/21 07:47 Methadone Hcl 20 Mg/2 Ml Oral.Conc PO 35 mg DAILY LISA Administration Ondansetron HCl 4 mg 02/06/21 01:18 Ondansetron Hcl 4 Mg/2 Ml Vial IVPUSH Q8H PRN Nausea and Vomiting Pharmacy Consult 1 each 02/06/21 01:18 Consult Rx Vancomycin Dosing MISCELLANE DAILY PRN Consult order Sodium Chloride 3 ml 02/06/21 08:00 02/07/21 07:48 0.9 % Sodium Chloride Flush 3 Ml Syringe IVFLUSH 3 ml QSHIFT LISA Administration Labs CBC & Chem 7: 02/07/21 06:59 02/07/21 06:59 Labs: Laboratory Results - last 24 hr 02/07/21 02/07/21 02/07/21 06:59 06:59 06:59 MCV 87.3 MCH 28.8 MCHC 33.0 RDW 13.3 Plt Count 342 MPV 9.2 L Absolute Nucleated RBC 0.000 Nucleated RBC % (auto) 0.0 Anion Gap 15 Estim Creat Clear Calc 122.1 Estimated GFR > 60 Random Glucose 110 Calcium 10.3 H D Total Creatine Kinase 35 L Vancomycin Trough 3.7 L Microbiology Microbiology Results: Microbiology 02/05/21 20:57 Blood Culture - Preliminary Blood - Venous No growth after 24 hours. 02/05/21 20:41 Blood Culture - Preliminary Blood - Venous No growth after 24 hours. Assessment and Plan (1) Shoulder pain, left: Status: Acute Assessment and Plan: 40M presented with left shoulder and hand pain and swelling left shoulder pain and swelling continue vanc, zosyn follow up doppler opoioid dependence methadone Quality Stroke Does the patient have a stroke diagnosis?: No VTE Prior VTE?: No VTE Risk Level:: Medical - moderate - high VTE Device Contraindication: Treatment Not Indicated VTE Drug Contraindication: N/A - Med Ordered
[2021-02-07 19:23] VITALS: BP 141/80; PULSE 63; RESP 18; TEMP 37; O2SAT 100
[2021-02-07 23:26] VITALS: BP 134/89; PULSE 70; RESP 16; TEMP 36.7; O2SAT 99
[2021-02-08] MEDS: HYDROmorphone HCl 0.5 MG/0.5 ML SYRINGE IVPUSH (00:13)
[2021-02-08] MEDS: Enoxaparin Sodium 40 MG/0.4 ML SYRINGE SUBCUT (02:04)
[2021-02-08] MEDS: Piperacillin Sodium/Tazobactam 3.375 GM in 0.9 % Sodium Chloride 50 ML IV ×2 (02:04→07:23)
[2021-02-08 03:22] VITALS: BP 138/78; PULSE 66; RESP 14; TEMP 36.7; O2SAT 100
[2021-02-08] MEDS: 0.9 % Sodium Chloride Flush 3 ML SYRINGE IVFLUSH (07:23)
[2021-02-08] MEDS: methADONE HCl 20 MG/2 ML ORAL.CONC 35 MG PO (07:23)
[2021-02-08 07:45] LABS: Vancomycin Trough 10.1 mcg/mL (10.0-20.0)
[2021-02-08 08:00] VITALS: BP 119/76; PULSE 67; RESP 16; TEMP 36.1; O2SAT 99
[2021-02-08] MEDS: vancomycin HCL 1,250 MG in 0.9 % Sodium Chloride 250 ML 166.67 MG IV (08:12)
--- NOTE | 2021-02-08 10:01 | P.DS_ITS ---
DS: Providers Provider Date of Service: 02/08/21 Date of admission: 02/06/21 01:14 Primary care physician: None Physician Consults: 02/06/21 11:35 Consult to Orthopedics Routine Consulting Provider: [facility] Reason for consultation: IVDU, L shoulder pain, finger swelling DS: Diagnosis Discharge Diagnosis (1) Shoulder pain, left: Status: Acute DS: Medications Discharge Medications Home Medications: Home Medications Medication Instructions Recorded Confirmed naproxen 500 mg tablet 1 tab PO BID 02/05/21 02/05/21 methadone 10 mg/5 mL oral solution 35 mg PO DAILY 02/06/21 02/06/21 Previous Rx's Medication Instructions Recorded amoxicillin 875 mg-potassium 1 tab PO Q12H #14 tab 02/08/21 clavulanate 125 mg tablet (Augmentin) doxycycline hyclate 100 mg tablet 100 mg PO BID #14 tab 02/08/21 DS: Summary Hospital Course Hospital Course: Patient was admitted for left shoulder pain and swelling. He was treated for left arm cellulitis with vancomycin Zosyn. Doppler was negative for DVT. CT did not show any deep tissue infection. He was seen by Orthopedics who felt patient not need further intervention at this time. Symptoms improved. Patient will be transitioned to oral Augmentin and doxycycline for 7 more days. He will follow up outpatient with Orthopedics. Time Spent with Patient Time attestation: Total time spent providing and/or coordinating discharge services: Discharge coordination time: Greater than 30 minutes Quality: Stroke Does the patient have a stroke diagnosis?: No Physical Exam Vital Signs: Vital Signs: Last Vital Signs Temp 97.0 F 02/08/21 08:00 Pulse 67 02/08/21 08:00 Resp 16 02/08/21 08:00 BP 119/76 02/08/21 08:00 Pulse Ox 99 02/08/21 08:00 Body Mass Index 25.8 General: AO X 3, no acute distress Resp: CTA bilateral CVS: S1,S2,RRR GI: soft, non tender, non distended Neuro: motor grossly intact Psych: appropriate affect Left shoulder: No ecchymosis, redness, or edema. Extreme tenderness to light touch of the lateral shoulder. Exam is limited due to pain. Unable to demonstrate any shoulder ROM. radial pulse intact. Sensation intact. Left index finger: Mild edema and tenderness to moderate palpation of the flexor tendon. No echymosis, or erythema. Patient is able to fully extend and is lacking about 3cm from a closed fist. Capillary refill is brisk. DS: Data Data Completed and Pending Labs on day of discharge: Laboratory Results - last 24 hr 02/08/21 06:16 Vancomycin Trough 10.1 Preliminary micro results at discharge 02/05/21 20:57 Blood Culture - Preliminary Blood - Venous No growth after 48 hours. 02/05/21 20:41 Blood Culture - Preliminary Blood - Venous No growth after 48 hours. Discharge Plan Discharge Patient Disposition: Home, Self-Care Discharge Diagnosis: left arm cellulitis Referrals: Joseph Vance MD [Physician] - 1 Week Physician,None [Primary Care Provider] - 1 Week Discharge Medications: New amoxicillin-pot clavulanate [Augmentin] 875-125 mg tablet 1 tab PO Q12H Qty: 14 RF: 0 doxycycline hyclate 100 mg tablet 100 mg PO BID Qty: 14 RF: 0 Continued naproxen 500 mg tablet 1 tab PO BID RF: 0 methadone 10 mg/5 mL Solution 35 mg PO DAILY RF: 0 Discontinued sulfamethoxazole-trimethoprim 800-160 mg tablet 1 tab PO Q12H RF: 0 Discharge Orders: Discharge Order (Routine); Ordered 02/08/21 Ordered By: Mingo Gunter Diet: advance to usual diet Activity on Discharge: As tolerated Stand Alone Forms: Patient Portal Discharge page Care Plan Goals: reocvery Health Concerns: left arm cellulitis Plan of Treatment: augmentin, doxy for one week, follow up with ortho, avoid drugs Assessment: see above Patient Instructions: Cellulitis (ED)
--- NOTE | 2021-02-08 11:03 | MHC.CM.PN ---
PT DISCHARGED HOME TODAY SELF-CARE AND SCRIPTS FOR AUGMENTIN & DOXYCYCLINE, PT ARRANGED FOR SISTER TO TRANSPORT.
== END 2021-02-08 10:41 | disposition home or self-care (01) | DRG 383 ==
LOC: HO.ED 21:30 → HO.EDOVER 02-06 01:15 → HO.S3 02-06 06:58
PROVIDERS: Family Medicine; Nurse Practitioner Family; Admitting Provider Internal Medicine; Emergency Provider Internal Medicine; Visit Provider Internal Medicine
DX: L03.012 Cellulitis of left finger (principal); E87.2 Acidosis; F11.20 Opioid dependence, uncomplicated; Z20.822 Contact with and (suspected) exposure to COVID-19; M25.512 Pain in left shoulder; F17.210 Nicotine dependence, cigarettes, uncomplicated; Z71.6 Tobacco abuse counseling; Z79.1 Long term (current) use of non-steroidal anti-inflammatories (NSAID)
CPT/HCPCS: 36415; 73120; 73201; 80048; 80202; 82550; 83605; 85025; 85027; 85652; 86140; 87040; 87635; 93005; 93971; 96361; 96365; 96367; 96375; 99218; 99285; 99291; J0696; J1170; J1650; J1885; J2543; J3370; Q9967

== ENCOUNTER 2021-04-24 08:58 | Outpatient (REF) | payer MEDICAID, SELFPAY ==
[2021-04-24 09:47] LABS: COVID-19 Test Negative (Negative)
== END 2021-04-24 08:59 | disposition home or self-care (01) ==
LOC: HO.LAB 08:58
PROVIDERS: PCP Family Medicine; Visit Provider Internal Medicine
DX: Z20.822 Contact with and (suspected) exposure to COVID-19 (principal)
CPT/HCPCS: 36415; 87635; C9803

== ENCOUNTER 2023-06-08 23:02 | Emergency (ER) | payer MEDICAID, SELFPAY ==
[2023-06-08 23:14] VITALS: BP 148/76; BP 176/126; PULSE 101; PULSE 106; RESP 29; TEMP 36.6; O2SAT 94; O2SAT 98; BMI 23.4
--- NOTE | 2023-06-09 00:10 | PC.NURSE ---
this rn assumed care of pt from ambulance pt placed on vehicle monitor technician moving erratically in bed pt belongings placed in decon by security changed over by decon this rn spoke with dr michael regarding blood work and ekg, pt refusing blood work and will not stay still for ekg. per md no new orders
--- NOTE | 2023-06-09 01:45 | PC.NURSE ---
pt up sitting on commode in room with no liner in place this attempted to assist pt, pt stood up and pushed past this rn pt assisted to restroom. pt in restroom x 15 minutes this rn attempted multiple times to redirect pt out of restroom pt agitated with this rn pt gown wet from getting in toilet this rn attempted to change wet gown pt grew more agitated. pt threw off wet gown exposing self stating is this what you want while holding genitals. this rn redirected pt to please change into new gown pt aggressively grabbed gown from this rn and attempted to push this rn home health resumed jacket changer of pt and pt replacement back to bed.
--- NOTE | 2023-06-09 02:30 | PC.NURSE ---
pt continues to refuse vitals and to keep phototypesetting equipment monitor in place
[2023-06-09 04:13] VITALS: BP 131/94; PULSE 69; RESP 16; O2SAT 96
[2023-06-09 04:22] LABS: Amphetamine Screen Urine Not Detected (Not Detect); Barbiturates, Urine Not Detected (Not Detect); Benzodiazepines Screen Urine Not Detected (Not Detect); Cannabinoid Screen Urine Not Detected (Not Detect); Cocaine Screen Urine POSITIVE (Not Detect); Fentanyl, urine POSITIVE (Not Detect); Opiate Screen Urine POSITIVE (Not Detect); Phencyclidine Screen Urine Not Detected (Not Detect)
--- NOTE | 2023-06-09 04:32 | ED_ITS ---
HPI - Altered Mental Status General Chief Complaint: ETOH/Substance Use Stated Complaint: SUBSTANCE ABUSE Time Seen by Provider: 06/09/23 04:29 Source: EMS Mode of arrival: EMS Limitations: altered mental status History of Present Illness HPI narrative: 41-year-old male who was brought to the emergency department for a retic behavior. Nursing notes report that the patient was found by [employer] police department in an alleyway acting erratically. Patient admitted to using PCP heroin and cocaine but denied using these drugs when he arrived in the emergency department. Initially the patient was uncooperative but they did fall asleep without any medications. Related Data Allergies Allergy/AdvReac Type Severity Reaction Status Date / Time No Known Allergies Allergy Verified 06/09/23 01:48 Review of Systems Review of Systems: Yes Unobtainable due to mental status PMFSH Social History Social History Smoked in Last 30 Days: Yes Use of substances other than those prescribed or required for medical reasons: Yes Substance Use Type: Crack/Cocaine, Heroin and Marijuana Physical Exam ED Vital Signs: Vital Signs - 24 hr 06/08/23 23:14 06/09/23 04:13 Temperature 97.9 F Pulse Rate 101 H 69 Respiratory Rate 29 H 16 Blood Pressure 176/126 H 131/94 H Pulse Oximetry 94 96 Oxygen Delivery Method Room Air Room Air BMI result Body Mass Index 23.4 Vital signs revealed an elevated heart rate of 101, elevated respiratory of 29, elevated blood pressure of 176/126 Exam: General: Initially agitated but then calm down and was able to sleep Head: Normocephalic, atraumatic EENT: PERRL, Lids normal, sclera normal, conjunctiva normal, nose normal , ears normal, throat without erythema or exudates Neck: Supple, no adenopathy, no trachea midline or C-spine tenderness Lung: breath sounds symmetric, no wheezing, rales or rhonchi Chest: symmetric movement, nontender Heart: Tachycardia with a normal rhythm, normal S1, S2 no murmurs or rubs Abdomen: soft, non-tender, nondistended, normal bowel sounds Back: no vertebral tenderness, no CVAT Extremities: no deformities, moves all extremities symmetrically Neuro: Somnolent but arousable Psych:, cooperative Medical Decision Making Medical Decision Making MDM Narrative: 41-year-old male brought into the emergency department after found by [employer] police officers acting erratically and an alleyway. He initially admitted to using PCP, heroin and cocaine but denied use in the emergency department. He was initially agitated but fell asleep without any medications. Patient's vital signs did reveal elevated heart rate and elevated blood pressure consistent with substance use disorder. Exam was otherwise unremarkable pain Following evaluation was ordered: Urine drug screen Patient was treated with the following: Zofran 8 mg IM 04:35 My interpretation patient's laboratory evaluation is as follows: Urine drug screen is positive for opiates fentanyl and cocaine 08:04 The patient woke up and vomited. The patient has piloerection of his skin chills, complaining of pain in his muscles and joints nausea and had 1 episode of vomiting. Patient appears to be withdrawing from opiates. He did tell me that he snorts 200 bags of heroin per day. He also states that he snorts cocaine frequently. Patient states that he was in a methadone clinic but is not taken methadone in a significant period of time. He states that he is interested in getting back into methadone clinic to help prevent him from using drugs. Following evaluation was ordered: CBC, CMP, CK, ESR, ethanol level, lactic acid, PTT, VBG, blood cultures x2, COVID-19, influenza, RSV, chest x-ray one view. Patient will be treated with normal saline IV x1 L, Zofran 4 mg IV and methadone 40 mg orally. At the end of my shift, the patient's care was turned over to my colleague, Dr. Melani Roberts Differential Diagnosis Differential Diagnoses: The differential diagnosis associated with the presentation includes Differential diagnosis includes was not limited to alcohol use disorder, opiate use disorder, cocaine use disorder, PCP use disorder Admission/Observation Consideration of admission/observation: Escalation of care including admission/observation considered Lab Data Labs: Lab Results 06/09/23 Range/Units 04:10 Urine Opiates Screen POSITIVE H (Not Detect) Urine Fentanyl Screen POSITIVE H (Not Detect) Ur Barbiturates Screen Not Detected (Not Detect) Ur Phencyclidine Scrn Not Detected (Not Detect) Ur Amphetamines Screen Not Detected (Not Detect) U Benzodiazepines Scrn Not Detected (Not Detect) Urine Cocaine Screen POSITIVE H (Not Detect) U Marijuana (THC) Screen Not Detected (Not Detect) Discharge Plan Discharge Clinical Impression: Opiate use, Fentanyl use disorder, severe, Cocaine use, Opiate withdrawal Opiate overdose Qualifiers: Encounter type: initial encounter Injury intent: accidental or unintentional Qualified Code(s): T40.601A - Poisoning by unspecified narcotics, accidental (unintentional), initial encounter Patient Disposition: Still a Patient
[2023-06-09] MEDS: methADONE HCl 20 MG/2 ML ORAL.CONC 40 MG PO (08:37)
[2023-06-09] MEDS: ondansetron HCL 4 MG/2 ML VIAL IVPUSH (08:56)
[2023-06-09] MEDS: 0.9 % Sodium Chloride 1,000 ML 999 ML IV (08:57)
[2023-06-09 09:30] LABS: Basophils Percent Auto 0.1 % (0-2); Eosinophils Absolute Auto 0.1 X10*3/uL (0.0-0.4); Eosinophils Percent Auto 0.8 % (0-4); Hematocrit 39.3 % (42.0-52.0); Hemoglobin 13.7 g/dl (14.0-18.0); Imm Gran Abs Auto 0.02 X10*3/uL (0.00-0.03); Imm Gran Pct Auto 0.3 % (0.0-0.4); Lymphocytes Percent Auto 28.4 % (20-40); Mean Corpuscular HGB Conc 34.9 g/dl (31.0-36.0); Mean Platelet Volume 9.2 fL (9.4-12.4); Monocytes Absolute Auto 0.6 X10*3/uL (0.1-1.2); Monocytes Percent Auto 8.9 % (2-11); Neutrophils Absolute Auto 4.3 x10*3/uL (2.0-8.3); Neutrophils Percent Auto 61.5 % (45-73); Platelet Count 213 X10*3/uL (160-400); Red Blood Count 4.57 X10*6/uL (4.60-5.80); Red Cell Distribution Width 12.2 % (11.0-16.0); White Blood Count 7.1 X10*3/uL (4.8-10.8)
[2023-06-09 09:36] VITALS: BP 129/77; PULSE 77; RESP 16; O2SAT 99
--- NOTE | 2023-06-09 09:40 | PC.NURSE ---
Pt awake intermittently, has vomited moderate x 2. Pt reports heroin use snorting prior to arrival. VSS, IV established and medicated as charted. Asleep at this time.
[2023-06-09 09:42] LABS: Influenza A PCR NEGATIVE (Negative); Influenza B PCR NEGATIVE (Negative); Resp Syncy Virus RNA Qual PCR NEGATIVE (Negative); SARS COV2 PCR INHOUSE NEGATIVE (Negative)
[2023-06-09 09:43] LABS: Alanine Aminotransferase 63 U/L (0-40); Albumin Level 4.5 g/dL (3.5-5.0); Alkaline Phosphatase 66 U/L (39-117); Anion Gap 14 (12-20); Aspartate Amino Transferase 46 U/L (5-37); Bilirubin Total 1.3 mg/dL (0.0-1.0); Blood Urea Nitrogen 15 mg/dL (9-16); Calcium 9.9 mg/dL (8.4-10.2); Carbon Dioxide 27 mmol/L (22-29); Chloride 103 mmol/L (96-108); Creatinine Clr Calc Pharmacy 112.4; Estimated Glomerular Filt Rate > 60; Ethanol < 10 mg/dL; Glucose Random 88 mg/dL (60-115); Potassium 3.7 mmol/L (3.3-5.1); Sodium 140 mmol/L (135-145); Total Protein 8.5 g/dL (6.5-8.0)
--- NOTE | 2023-06-09 09:49 | PC.NURSE ---
recovery at bedside speaking with pt at this time
--- NOTE | 2023-06-09 10:14 | MHC.RECOVRN ---
Met with pt in ED22 after pt was BIBA after being found by [employer] in [facility] acting erratic. Pt reported using PCP, heroin, and cocaine. Pt reported interest in restarting methadone, was given 40 mg this morning at 0837, however, vomited shortly after. Pt currently visibly uncomfortable, restless, diaphoretic, goosebumps, rhinorrhea, nauseous, reporting body aches. Pt reports using 200 bags heroin/fentanyl daily, IN, as well as cocaine, INH, $200 daily. Pt reports [facility]. Pt reports desire to restart and reconnect with [facility]. Educated pt regarding [facility] being closed tomorrow for the holiday, pt instructed to return to the ED for methadone dose and present to the [facility] on Saturday. Pt verbalizes understanding. Pts referral sent to [facility].
[2023-06-09 10:24] LABS: Erythrocyte Sedimentation Rate 5 MM/HR (0-15)
[2023-06-09] MEDS: diphenhydrAMINE HCL 50 MG/ML VIAL 25 MG IVPUSH (10:28)
[2023-06-09] MEDS: Naloxone HCl Nasal TAKE HOME 4 MG SPRAY 8 MG NOSTRILALT (10:29)
[2023-06-09] MEDS: Metoclopramide HCl 10 MG/2 ML VIAL IVPUSH (10:29)
[2023-06-09 12:38] VITALS: BP 124/65; PULSE 72; RESP 16; O2SAT 97
--- NOTE | 2023-06-09 17:56 | MHC.CARE ---
Care Team looked for pt to evaluate however it appears pt left without evaluation.
== END 2023-06-09 12:45 | disposition home or self-care (01) ==
PROVIDERS: Emergency Provider Emergency Medicine Emergency Medical Services
DX: T40.601A Poisoning by unspecified narcotics, accidental (unintentional), initial encounter (principal); F11.23 Opioid dependence with withdrawal; F14.10 Cocaine abuse, uncomplicated; Y92.9 Unspecified place or not applicable; Z59.02 Unsheltered homelessness; Z20.822 Contact with and (suspected) exposure to COVID-19; Z20.828 Contact with and (suspected) exposure to other viral communicable diseases
CPT/HCPCS: 0241U; 36415; 80053; 80307; 82550; 85025; 85652; 87040; 96361; 96374; 96375; 99284; J1200; J2405; J2765

== ENCOUNTER → 2025-01-13 05:38 | Outpatient (BNV) | payer MEDICAID, SELFPAY | PROVIDERS: Visit Provider Radiology Diagnostic Radiology | DX: M25.572 Pain in left ankle and joints of left foot (principal); W19.XXXA Unspecified fall, initial encounter | CPT/HCPCS: 73610 ==

== ENCOUNTER 2025-01-13 06:26 | Emergency (ER) | payer MEDICAID, SELFPAY ==
--- NOTE | ~2025-01-13 | XR_ITS ---
EXAMINATION: XR ANKLE 3 OR MORE VIEWS LEFT HISTORY: fall, ankle pain COMPARISON: There are no prior studies available for comparison. FINDINGS: Three views of the left ankle are submitted. Osseous mineralization is normal. There is no fracture or dislocation. The joint spaces are preserved. The soft tissues are unremarkable. XR/XR ankle LT min 3V IMPRESSION: Unremarkable examination of the left ankle. Electronically signed by: Nuno Giraldo MD 01/13/2025 08:00 AM EDT
[2025-01-13 06:28] VITALS: BP 127/70; PULSE 102; RESP 16; TEMP 36.2; O2SAT 97; BMI 25.8
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
--- NOTE | 2025-01-13 09:07 | ED_ITS ---
HPI - General Adult General Chief complaint: Extremity Injury, Lower Stated complaint: fall Time Seen by Provider: 01/13/25 08:59 Source: patient Mode of arrival: ambulatory Limitations: no limitations History of Present Illness ED Provider: Prema Camilo PA-C HPI narrative: Patient is a 44 year old assigned male at with a history of IVDA presenting to the emergency department today with left ankle pain after a fall. Patient states that he fell yesterday off of an electric skateboard and injured his left ankle. Patient denies hitting his head or any loss of consciousness. Patient denies any dizziness, lightheadedness, abdominal pain, nausea, vomiting, fever, chills, blurry vision, double vision, loss of vision, chest pain, difficulty breathing, shortness of breath, back pain, night sweats, pain with urination, increased urinary frequency, increased urinary urgency, blood in his urine or stool, syncope or a near syncopal episode, bowel incontinence, bladder incontinence, or any other complaints at this time. Relieving factors: none Exacerbating factors: none Associated symptoms: denies other symptoms Treatments prior to arrival: none Related Data Home Medications ?Medication ?Instructions ?Recorded ?Confirmed naproxen 500 mg tablet 1 tab PO BID swelling 02/05/21 methadone 10 mg/5 mL oral solution 35 mg PO DAILY 01/1002/06/21 Previous Rx's ?Medication ?Instructions ?Recorded amoxicillin 875 mg-potassium 1 tab PO Q12H #14 tabs clavulanate 125 mg tablet (Augmentin) doxycycline hyclate 100 mg tablet 100 mg PO BID #14 ta bs 02/08/21 ondansetron 4 mg disintegrating 4 mg PO Q8H PRN nausea and 06/09/23 tablet vomiting #20 tabs Allergies Allergy/AdvReac Type Severity Reaction Status Date / Time No Known Allergies Allergy Verified 01/13/25 06:29 Review of Systems Constitutional: Constitutional: Reports no additional constitutional complaints, Denies chills, Denies fever(s) and Denies night sweats Eyes: Eyes: Reports no additional eye complaints, Denies blurry vision, Denies change in vision, Denies diplopia, Denies eye discharge, Denies loss of vision and Denies eye pain ENT: Denies dizziness Cardiovascular: Cardiovascular: Reports no additional cardiovascular complaints, Denies chest pain, Denies lightheadedness, Denies Loss of Consciousness and Denies dyspnea Respiratory: Respiratory: Reports no additional respiratory complaints and Denies dyspnea Gastrointestinal: Gastrointestinal: Reports no additional gastrointestinal complaints, Denies abdominal pain, Denies melena, Denies hematochezia, Denies change in bowel habits and Denies change in stool character Genitourinary: Genitourinary: Reports no additional male genitourinary complaints, Denies hematuria, Denies oliguria, Denies difficulty urinating, Denies dysuria, Denies urinary frequency, Denies urinary hesitancy, Denies urinary incontinence and Denies urinary urgency Musculoskeletal: Musculoskeletal: Reports no additional musculoskeletal complaints, Denies numbness and Denies tingling Comments: left ankle pain Neurologic: Denies dizziness, Denies loss of vision, Denies numbness and Denies tingling Psychiatric: Psychiatric: Reports no additional psychiatric complaints Endocrine: Endocrine: Reports no additional endocrine complaints Hematologic/Lymphatic: Hematologic/Lymphatic: Reports no additional hematologic/lymphatic complaints Allergic/Immunologic: Allergic/Immunologic: Reports no additional allergic/immunologic complaints PMFSH Past Medical History Attestation statement: The following information was validated with the patient. Source: old records reviewed and nursing notes reviewed Medical History IV drug abuse No active medical problems Social History Social History Household Members: Family Housing: Apartment Do you presently have visiting nurse or other home services: No Alcohol intake: current Alcohol intake frequency: a few times a month Patient Tobacco Use Status: Current everyday Tobacco user Tobacco use type: Cigarette Cigarette Packs Per Day: 0.5 Cigarettes Per Day: 10.0 Years Smoked: 10 Substance Use Type: Crack/Cocaine, Marijuana and Opiates Advance Directives: No Advance Directives Information Provided: Yes service: No Current occupational status: employed Physical Exam ED Vital Signs: Vital Signs - 24 hr 01/13/25 06:28 01/13/25 09:44 Temperature 97.1 F 97.1 F Pulse Rate 102 H 102 H Respiratory Rate 16 16 Blood Pressure 127/70 127/70 Pulse Oximetry 97 97 Oxygen Delivery Method Room Air Room Air BMI result Body Mass Index 25.8 Const General: cooperative, no acute distress, alert and awake Nutritional Appearance: well nourished Orientation/consciousness: patient oriented x3 HENMT Head: Yes normal to inspection and Yes atraumatic Ears: hearing grossly normal bilaterally and external ears normal General nose exam: Normal external nose present, no nasal discharge noted and no epistaxis Face and sinus: Yes normal facial exam, No abrasion and No laceration Mouth: Normal oral and palatal mucosa present, no drooling and no muffled voice Eyes General: appearance normal, both eyes and all related structures Periorbital: periorbital findings normal Eyelids: Yes eyelids normal Conjunctivae: conjunctivae normal Pupils: Equal, round and reactive pupils present EOM: EOMs intact bilaterally Neck Neck: Yes normal visual inspection, Yes full ROM and Yes no lymphadenopathy Resp Effort & Inspection: normal respiratory effort and able to speak in complete sentences Neuro General: patient oriented x3, moves all extremities and CN's II-XI intact bilaterally Cranial nerves: Yes Equal, round and reactive pupils present Cognition (Neuro): normal cognition Extrem General: Yes normal to inspection, Yes full ROM and Yes capillary refill normal Psych Appearance: grossly normal Mental Status: mental status grossly normal Affect: normal affect Attitude: cooperative Thought process: Normal thought process present Thought content: Normal thought content present Insight: Good insight present (Psych) Procedures Orthopedic Splinting/Casting Injury #1: Side: left Lower Extremity Injury Location: ankle Lower Extremity Immobilizer: boot orthosis Medical Decision Making Medical Decision Making MDM Narrative: Patient is a 44 year old assigned male at with a history of IVDA presenting to the emergency department today with left ankle pain after a fall. Patient's physical exam was unremarkable. Patient's left ankle x-ray showed no acute process. I explained my physical exam findings as well as all test results to the patient. I answered all questions asked by the patient. Patient's left ankle was placed in a tall walking boot, without incident. Patient's PMS was intact prior to and after boot placement. I stressed the importance of the patient taking his medication as directed (either prescribed or as the over the counter packaging recommends). I stressed the importance of the patient following up with his primary care provider and if pain continues greater than 2 weeks - the orthopedic team. I stressed the importance of the patient returning to the emergency department immediately if his symptoms were to worsen or if he were to develop any dizziness, shortness of breath, difficulty breathing, chest pain, blurry vision, loss of vision, nausea, vomiting, abdominal pain, fever, chills, back pain, or any other complaints. Patient verbalized agreement and understanding with this treatment plan and discharge. Differential Diagnosis Differential Diagnoses: The differential diagnosis associated with the presentation includes Left ankle pain Left ankle sprain Left ankle strain Left ankle fracture Admission/Observation Consideration of admission/observation: Escalation of care including admission/observation considered Patient would have been admitted to the hospital had his work up had any findings where hospital admission was appropriate and his clinical presentation warranted hospital admission. Independent Interpretation I performed an independent interpretation of an: Plain X-Ray Interpretation: My interpretation is in agreement with the radiologist's impression of this imaging study. EXAMINATION: XR ANKLE 3 OR MORE VIEWS LEFT HISTORY: fall, ankle pain COMPARISON: There are no prior studies available for comparison. FINDINGS: Three views of the left ankle are submitted. Osseous mineralization is normal. There is no fracture or dislocation. The joint spaces are preserved. The soft tissues are unremarkable. XR/XR ankle LT min 3V IMPRESSION: Unremarkable examination of the left ankle. Electronically signed by: Nuno Giraldo MD 01/13/2025 08:00 AM EDT Dictated By: Nnuo Giraldo MD Signed By: Electronically signed by Nuno Giraldo MD 01/13/25 0800 Radiology Impression Discussion of test interpretation with radiology: I have reviewed the radiologist's reading. Discharge Plan Discharge Clinical Impression: Ankle sprain Patient Disposition: Home, Self-Care Instructions: Ankle Sprain (DC), Walking Boot (ED) Additional Instructions: Wear your walking boot when ambulating. If pain persists >2 weeks, follow up with the orthopedic team. Follow up with your primary care provider. Return to the emergency department immediately if your symptoms worsen or if you develop any numbness, tingling, dizziness, shortness of breath, difficulty breathing, chest pain, blurry vision, loss of vision, nausea, vomiting, abdominal pain, fever, chills, back pain, or any other complaints. Use greenberg bota ortop?dica al caminar. Si el dolor persiste m?s de dos semanas, consulte con el equipo de ortopedia. Consulte con greenberg m?dico de cabecera. Regrese a urgencias de inmediato si linden s?ntomas empeoran o si presenta entumecimiento, hormigueo, mareos, dificultad para respirar, dolor en el pecho, visi?n borrosa, p?rdida de visi?n, n?useas, v?mitos, dolor abdominal, fiebre, escalofr?os, dolor de espalda o cualquier otra molestia. If you do not have a primary care provider - call any of the below numbers to establish and follow up with a primary care provider. Si no tiene un proveedor de atenci?n primaria, llame a cualquiera de los n?meros que aparecen a continuaci?n para establecer y hacer seguimiento con un proveedor de atenci?n primaria. [facility] Primary Care ([place]) [phone] [facility], [address] [facility] Primary Care ([address] [place]) [phone] [place] [address], [address] [facility], [address] [facility] Primary Care ([address] [place]) [phone] [place] [address], [address] [facility], [address] [facility] Primary Care ([place]) [phone] [place] [address], [address] [facility], [address] [facility] Family Medicine [phone] [place] [address], [address] Please see the information below about our Patient Portal. If you are not yet enrolled in the [facility] Patient Portal, you will receive an enrollment email invitation following your visit to any [facility] care setting. You may also self-enroll in the Patient Portal by visiting our website: [email or web address] The following information is required to access the Patient Portal: - Your [facility] Medical Record Number - Your personal home email address (must match what is in your electronic medical record, Registration staff can assist with this) - Name - Date of Capabilities of the Patient Portal: - Message some providers - View upcoming appointments - Access your health summary, medical history, and visit history - View current conditions and allergies - View procedure and lab results - View your medications, including guidelines, side effects, and precautions - Complete pre-appointment questionnaires requested by your provider - Ready summary reports of your office visits and procedures To access the Patient Portal Mobile Jocelyne, follow these directions: - Search [employer] in the [employer] Store or [employer] Store - Download the Jocelyne - Search for [facility] - Enter your login/password Portal del paciente Si usted no esta inscrito en el portal de pacientes de [facility], recibira tyler invitacion de inscripcion despues de greenberg visita al [facility] o al [facility] via correo electronico. Tambien puede inscribirse voluntariamente en el portal de pacientes visitando nuestra pagina web: [email or web address] La siguiente informacion sera requerida para acceder al portal: - Greenberg mellissa de historia medica de HM - Greenberg direccion de correo electronico personal - Nombre - Fecha de nacimiento Capacidades: Las siguientes capacidades estan disponibles en el portal de pacientes: - Enviar mensajes a algunos doctores - Verificar proximas citas - Acceso a greenberg historial de lien, registro medico e historial de visitas - Vic las condiciones actuales y alergias vic procedimientos y resultados del laboratorio - Vic linden medicamentos, incluyendo las pautas - Efectos secundarios y precauciones - Completar o llenar formularios / cuestionarios de - Citas solicitadas por greenberg doctor - Leer los resumenes de reportes medicos de linden visitas y procedimientos Rick acceder a la aplicacion movil: - [employer] en la [employer] Store o [employer] Store - Descargue la aplicacion - [facility] - Ingrese greenberg nombre de usuario / Contrasena Prescriptions: No Action naproxen 500 mg tablet 1 tab PO BID methadone 10 mg/5 mL Solution 35 mg PO DAILY amoxicillin-pot clavulanate [Augmentin] 875-125 mg tablet 1 tab PO Q12H Qty: 14 0RF doxycycline hyclate 100 mg tablet 100 mg PO BID Qty: 14 0RF ondansetron 4 mg tablet,disintegrating 4 mg PO Q8H PRN (Reason: nausea and vomiting) Qty: 20 0RF Referrals: [facility] Orthopedic Surgeons [Provider Group] Referral Note: IF pain persists >2 weeks, call to establish and follow up with the orthopedic team. Stand Alone Forms: Work/School Release Interventions: ED Discharge Assessment Last Done: 01/13/25 09:44 Discharge Date/Time: 01/13/25 09:45 Print Language: Danish
[2025-01-13 09:44] VITALS: BP 127/70; PULSE 102; RESP 16; TEMP 36.2; O2SAT 97
== END 2025-01-13 09:45 | disposition home or self-care (01) ==
PROVIDERS: Emergency Provider Emergency Medicine
DX: S93.402A Sprain of unspecified ligament of left ankle, initial encounter (principal); V00.841A Fall from standing electric scooter, initial encounter; Y93.89 Activity, other specified; Y92.488 Other paved roadways as the place of occurrence of the external cause; Y99.8 Other external cause status
CPT/HCPCS: 73610; 99282; 99283